=== PATIENT | male | born 1965 | race Caucasian/White ===

== ENCOUNTER → 2021-09-27 11:41 | Outpatient (CLI) | payer OTHER, SELFPAY ==
--- NOTE | 2021-09-27 | DI.RAD.S_ITS ---
PROCEDURE: XR KNEE RT 4V INDICATIONS: Osteoarthritis of knee, unspecified TECHNIQUE: 4 views of the knee were acquired. COMPARISON: None. FINDINGS: Bones: No fractures or dislocations. Khts-qw-tjadpzdu tricompartmental osteoarthritis is seen more prominent in medial femoral tibial compartment. No suspicious bony lesions. Soft tissues: No joint effusion. No suspicious soft tissue calcifications. 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 No fracture or dislocation. No significant joint effusion. Dictated by: Kaleb Evans M.D. on 09/27/2021 at 13:37 Approved by: Kaleb Evans M.D. on 09/27/2021 at 13:37
== END ==
LOC: LAB 11:49 → RAD 11:56
PROVIDERS: PCP Internal Medicine; Referring Provider Internal Medicine; Visit Provider Internal Medicine
DX: M17.11 Unilateral primary osteoarthritis, right knee (principal)
CPT/HCPCS: 73564